=== PATIENT | female | born 1950 | race Caucasian/White ===

== ENCOUNTER → 2024-03-01 07:49 | Outpatient (REF) | payer MEDICARE, BC, SELFPAY ==
[2024-03-01 10:14] LABS: ALT (SGPT) 22 U/L (0-35); AST (SGOT) 34 U/L (14-36); Albumin 4.3 g/dl (3.5-5.0); Alkaline Phosphatase 87 U/L (38-126); Blood Urea Nitrogen 32 mg/dl (7-17); Calcium 9.8 mg/dl (8.4-10.2); Carbon Dioxide 28 mmol/L (22-30); Chloride 103 mmol/L (98-107); Glucose 105 mg/dl (70-99); HDL Cholesterol 67 mg/dl; LDL Cholesterol, Calculated 28 mg/dl; Potassium 4.8 mmol/L (3.5-5.1); Sodium 136 mmol/L (135-145); Total Bilirubin 0.4 mg/dl (0.2-1.3); Total Cholesterol 109 mg/dl (50-199); Total Protein 6.9 g/dl (6.3-8.2); Triglyceride 74 mg/dl (10-149); Very Low Density Lipoprotein 14 mg/dl (0-30); eGFR > 60.00
== END ==
LOC: HWLAB 07:49
PROVIDERS: ATTENDING PHYSICIAN Internal Medicine Cardiovascular Disease; FAMILY PHYSICIAN Family Medicine
DX: E78.00 Pure hypercholesterolemia, unspecified (principal)
CPT/HCPCS: 36415; 80053; 80061

== ENCOUNTER → 2024-03-19 13:52 | Outpatient (REF) | payer MEDICARE, BC, SELFPAY ==
[2024-03-19 17:00] LABS: TSH 1.47 uIU/ml (0.47-4.68)
== END ==
LOC: HWRAD 13:52
PROVIDERS: ATTENDING PHYSICIAN Otolaryngology; FAMILY PHYSICIAN Family Medicine
DX: E04.0 Nontoxic diffuse goiter (principal); I10 Essential (primary) hypertension
CPT/HCPCS: 36415; 76536; 84443

== ENCOUNTER → 2024-05-15 13:32 | Outpatient (REF) | payer MEDICARE, BC, SELFPAY ==
[2024-05-15 15:38] LABS: % Basophils 1.1 % (0-2); % Eosinophils 2.2 % (0-6); % Immature Granulocytes 1.2 % (0-0.5); % Lymphocytes 31.2 % (20.5-51.1); % Monocytes 6.9 % (1.7-9.3); % Neutrophils 57.4 % (42.2-75.2); Absolute Basophils 0.1 10^3/uL (0-0.2); Absolute Eosinophils 0.1 10^3/uL (0-0.7); Absolute Immature Granulocytes 0.1 10^3/uL (0-0.05); Absolute Monocytes 0.5 10^3/uL (0.1-0.6); Absolute Neutrophils 3.7 10^3/uL (1.4-6.5); Hematocrit 40.7 % (37.0-47.0); Hemoglobin 13.9 g/dL (12.0-16.0); Mean Corp Hgb Conc. 34.2 g/dL (33.0-37.0); Mean Corpuscular Hgb 33.3 pg (27.0-31.0); Mean Corpuscular Volume 97.4 fL (81.0-99.0); Mean Platelet Volume 10.3 fL (7.4-10.4); Nucleated Red Blood Cells % 0 %; Platelet Count 204 10^3/uL (130-400); Red Blood Cell Count 4.18 10^6/uL (4.20-5.40); Red Cell Dist. Width 13.5 % (11.5-14.5); White Blood Cell Count 6.5 10^3/uL (4.8-10.8)
[2024-05-15 15:39] LABS: Urine Albumin Negative (Neg - Trace); Urine Bilirubin Negative (Negative); Urine Character Clear (Clear); Urine Color Yellow; Urine Glucose Negative (Negative); Urine Ketone Trace (Negative); Urine Leukocyte 1+ (Negative); Urine Nitrite Negative (Negative); Urine Occult Blood Negative (Negative); Urine Urobilinogen Negative (Neg - 1+)
[2024-05-15 15:46] LABS: ALT (SGPT) 24 U/L (0-35); AST (SGOT) 33 U/L (14-36); Albumin 4.2 g/dl (3.5-5.0); Alkaline Phosphatase 74 U/L (38-126); Blood Urea Nitrogen 17 mg/dl (7-17); Calcium 9.6 mg/dl (8.4-10.2); Carbon Dioxide 27 mmol/L (22-30); Chloride 103 mmol/L (98-107); Creatine Phosphokinase 63 U/L (30-135); Glucose 88 mg/dl (70-99); HDL Cholesterol 60 mg/dl; LDL Cholesterol, Calculated 20 mg/dl; Magnesium 1.9 mg/dl (1.6-2.3); Phosphorus 3.8 mg/dl (2.5-4.5); Potassium 4.5 mmol/L (3.5-5.1); Sodium 138 mmol/L (135-145); Total Bilirubin 0.7 mg/dl (0.2-1.3); Total Cholesterol 90 mg/dl (50-199); Total Protein 6.7 g/dl (6.3-8.2); Triglyceride 51 mg/dl (10-149); Uric Acid 5.2 mg/dl (2.5-6.2); Very Low Density Lipoprotein 10 mg/dl (0-30); eGFR > 60.00
[2024-05-15 15:54] LABS: Iron 74 ug/dl (37-170)
[2024-05-15 15:55] LABS: Percent Saturation 20 % (20-50); Total Iron Binding Capacity 366 ug/dl (265-497)
[2024-05-15 16:03] LABS: Free T4 1.28 ng/dl (0.78-2.19); Vitamin D, 25-OH*** 96.1 ng/mL (30-80)
[2024-05-15 16:16] LABS: TSH 0.93 uIU/ml (0.47-4.68)
[2024-05-15 17:25] LABS: Urine Squamous Cell >30 /LPF (Few)
[2024-05-15 17:27] LABS: Urine Bacteria Few (Negative); Urine Red Blood Cell 0-2 /HPF (0-2)
[2024-05-16 09:39] LABS: Glycohemoglobin (HgbA1c) 5.5 % (4.0-5.6)
== END ==
LOC: HWRAD 13:32
PROVIDERS: ATTENDING PHYSICIAN Family Medicine
DX: Z78.0 Asymptomatic menopausal state (principal); Z12.31 Encounter for screening mammogram for malignant neoplasm of breast; Z00.00 Encounter for general adult medical examination without abnormal findings; E78.5 Hyperlipidemia, unspecified; I10 Essential (primary) hypertension; R79.89 Other specified abnormal findings of blood chemistry; E04.1 Nontoxic single thyroid nodule; E55.9 Vitamin D deficiency, unspecified
CPT/HCPCS: 36415; 71046; 77063; 77067; 77080; 80053; 80061; 81003; 81015; 82306; 82550; 82728; 83036; 83540; 83550; 83735; 84100; 84439; 84443; 84550; 85025

== ENCOUNTER → 2024-05-17 11:56 | Outpatient (REF) | payer MEDICARE, BC, SELFPAY ==
[2024-05-17 19:51] LABS: Urine Albumin Negative (Neg - Trace); Urine Bilirubin Negative (Negative); Urine Character Clear (Clear); Urine Color Yellow; Urine Glucose Negative (Negative); Urine Ketone Negative (Negative); Urine Leukocyte Trace (Negative); Urine Nitrite Negative (Negative); Urine Occult Blood Negative (Negative); Urine Urobilinogen Negative (Neg - 1+)
[2024-05-17 20:19] LABS: Urine Red Blood Cell 0-2 /HPF (0-2); Urine Squamous Cell 0-2 /LPF (Few); Urine White Cell 0-2 /HPF (0-5)
== END ==
LOC: CLAB 11:56
PROVIDERS: ATTENDING PHYSICIAN Family Medicine
DX: R82.71 Bacteriuria (principal)
CPT/HCPCS: 81003; 81015; 87086

== ENCOUNTER → 2024-06-10 16:27 | Outpatient (REF) | payer MEDICARE, BC, SELFPAY | LOC: HWRAD 16:27 | PROVIDERS: ATTENDING PHYSICIAN Family Medicine | DX: Z78.0 Asymptomatic menopausal state (principal) | CPT/HCPCS: 73600; 73620 ==

== ENCOUNTER → 2024-07-15 18:07 | Outpatient (REF) | payer MEDICARE, BC, SELFPAY | LOC: PAVMRI 18:07 | PROVIDERS: ATTENDING PHYSICIAN Student in an Organized Health Care Education/Training Program; FAMILY PHYSICIAN Family Medicine | DX: M25.571 Pain in right ankle and joints of right foot (principal) | CPT/HCPCS: 73721 ==

== ENCOUNTER → 2024-09-06 12:10 | Outpatient (REF) | payer MEDICARE, BC, SELFPAY ==
[2024-09-06 15:38] LABS: HDL Cholesterol 75 mg/dl; LDL Cholesterol, Calculated 26 mg/dl; Total Cholesterol 114 mg/dl (50-199); Triglyceride 67 mg/dl (10-149); Very Low Density Lipoprotein 13 mg/dl (0-30)
== END ==
LOC: HWLAB 12:10
PROVIDERS: ATTENDING PHYSICIAN Family Medicine
DX: E78.5 Hyperlipidemia, unspecified (principal)
CPT/HCPCS: 36415; 80061

== ENCOUNTER → 2025-03-21 12:24 | Outpatient (REF) | payer MEDICARE, BC, SELFPAY | LOC: HWRAD 12:24 | PROVIDERS: ATTENDING PHYSICIAN Otolaryngology; FAMILY PHYSICIAN Family Medicine | DX: E04.0 Nontoxic diffuse goiter (principal) | CPT/HCPCS: 36415; 76536; 84443 ==

== ENCOUNTER → 2025-04-16 10:22 | Outpatient (REF) | payer MEDICARE, BC, SELFPAY ==
[2025-04-16 12:57] LABS: % Basophils 0.9 % (0-2); % Eosinophils 2.5 % (0-6); % Immature Granulocytes 0.4 % (0-0.5); % Lymphocytes 30.8 % (20.5-51.1); % Monocytes 8.8 % (1.7-9.3); % Neutrophils 56.6 % (42.2-75.2); Absolute Basophils 0.1 10^3/uL (0-0.2); Absolute Eosinophils 0.1 10^3/uL (0-0.7); Absolute Lymphocytes 1.8 10^3/uL (1.2-3.4); Absolute Monocytes 0.5 10^3/uL (0.1-0.6); Absolute Neutrophils 3.2 10^3/uL (1.4-6.5); Hematocrit 41.9 % (37.0-47.0); Hemoglobin 13.8 g/dL (12.0-16.0); Mean Corp Hgb Conc. 32.9 g/dL (33.0-37.0); Mean Corpuscular Hgb 32.8 pg (27.0-31.0); Mean Corpuscular Volume 99.5 fL (81.0-99.0); Mean Platelet Volume 9.9 fL (7.4-10.4); Nucleated Red Blood Cells % 0 %; Platelet Count 222 10^3/uL (130-400); Red Blood Cell Count 4.21 10^6/uL (4.20-5.40); Red Cell Dist. Width 13.9 % (11.5-14.5); White Blood Cell Count 5.7 10^3/uL (4.8-10.8)
[2025-04-16 13:05] LABS: ALT (SGPT) 21 U/L (0-35); AST (SGOT) 27 U/L (14-36); Albumin 4.3 g/dl (3.5-5.0); Alkaline Phosphatase 77 U/L (38-126); Blood Urea Nitrogen 19 mg/dl (7-17); Calcium 9.6 mg/dl (8.4-10.2); Carbon Dioxide 29 mmol/L (22-30); Chloride 109 mmol/L (98-107); Glucose 101 mg/dl (70-99); HDL Cholesterol 74 mg/dl; Iron 68 ug/dl (37-170); LDL Cholesterol, Calculated 35 mg/dl; Magnesium 1.8 mg/dl (1.6-2.3); Phosphorus 3.6 mg/dl (2.5-4.5); Potassium 4.1 mmol/L (3.5-5.1); Sodium 142 mmol/L (135-145); Total Bilirubin 0.7 mg/dl (0.2-1.3); Total Cholesterol 118 mg/dl (50-199); Total Protein 6.7 g/dl (6.3-8.2); Triglyceride 49 mg/dl (10-149); Uric Acid 4.2 mg/dl (2.5-6.2); Very Low Density Lipoprotein 9 mg/dl (0-30); eGFR > 60.00
[2025-04-16 13:14] LABS: Percent Saturation 16 % (20-50); Total Iron Binding Capacity 408 ug/dl (265-497)
[2025-04-16 13:20] LABS: Free T4 1.32 ng/dl (0.78-2.19); Vitamin D, 25-OH*** 85.3 ng/mL (30-80)
[2025-04-16 13:27] LABS: Glycohemoglobin (HgbA1c) 5.5 % (4.0-5.6)
[2025-04-16 13:33] LABS: TSH 1.26 uIU/ml (0.47-4.68)
[2025-04-16 13:37] LABS: Ferritin 33.1 ng/ml (11.1-264.0)
== END ==
LOC: HWRAD 10:22
PROVIDERS: ATTENDING PHYSICIAN Family Medicine
DX: R91.1 Solitary pulmonary nodule (principal); E78.5 Hyperlipidemia, unspecified; I10 Essential (primary) hypertension; E04.1 Nontoxic single thyroid nodule; R73.09 Other abnormal glucose; E55.9 Vitamin D deficiency, unspecified; R79.89 Other specified abnormal findings of blood chemistry
CPT/HCPCS: 36415; 71250; 80053; 80061; 82306; 82728; 83036; 83540; 83550; 83735; 84100; 84439; 84443; 84550; 85025

== ENCOUNTER → 2025-05-13 18:03 | Outpatient (REF) | payer MEDICARE, BC, SELFPAY | LOC: RAD 18:03 | PROVIDERS: ATTENDING PHYSICIAN Family Medicine | DX: M79.602 Pain in left arm (principal) | CPT/HCPCS: 72040; 73060 ==

== ENCOUNTER → 2025-05-19 14:34 | Outpatient (REF) | payer MEDICARE, BC, SELFPAY | LOC: HWWDC 14:34 | PROVIDERS: ATTENDING PHYSICIAN Family Medicine | DX: Z12.31 Encounter for screening mammogram for malignant neoplasm of breast (principal) | CPT/HCPCS: 77063; 77067 ==

== ENCOUNTER → 2025-05-28 12:46 | Outpatient (REF) | payer MEDICARE, BC, SELFPAY ==
[2025-05-28 16:08] LABS: Albumin 4.3 g/dl (3.5-5.0); Blood Urea Nitrogen 15 mg/dl (7-17); Calcium 10.1 mg/dl (8.4-10.2); Carbon Dioxide 30 mmol/L (22-30); Chloride 104 mmol/L (98-107); Glucose 96 mg/dl (70-99); Magnesium 1.8 mg/dl (1.6-2.3); Potassium 4.4 mmol/L (3.5-5.1); Sodium 139 mmol/L (135-145); eGFR > 60.00
[2025-05-28 16:20] LABS: Microalbumin, Random Urine 3.8 mg/dl (0.6-1.7)
[2025-05-28 16:34] LABS: Microalb - Urine Creatinine 354.400 mg/dl
== END ==
LOC: HWLAB 12:46
PROVIDERS: ATTENDING PHYSICIAN Specialist; FAMILY PHYSICIAN Family Medicine
DX: I10 Essential (primary) hypertension (principal); N26.9 Renal sclerosis, unspecified; N28.1 Cyst of kidney, acquired; R31.9 Hematuria, unspecified; E87.1 Hypo-osmolality and hyponatremia; E55.9 Vitamin D deficiency, unspecified; R94.31 Abnormal electrocardiogram [ECG] [EKG]
CPT/HCPCS: 36415; 80069; 82043; 82570; 83735

== ENCOUNTER → 2025-06-05 15:02 | Outpatient (REF) | payer MEDICARE, BC, SELFPAY | LOC: PAVMRI 15:02 | PROVIDERS: ATTENDING PHYSICIAN Physical Medicine & Rehabilitation; FAMILY PHYSICIAN Family Medicine | DX: M75.102 Unspecified rotator cuff tear or rupture of left shoulder, not specified as traumatic (principal) | CPT/HCPCS: 73221 ==

== ENCOUNTER → 2025-07-01 18:36 | Outpatient (REF) | payer MEDICARE, BC, SELFPAY | LOC: MRI 3T 18:36 | PROVIDERS: ATTENDING PHYSICIAN Orthopaedic Surgery; FAMILY PHYSICIAN Family Medicine | DX: M25.511 Pain in right shoulder (principal) | CPT/HCPCS: 72141 ==

== ENCOUNTER → 2025-09-11 16:26 | Outpatient (REF) | payer MEDICARE, BC, SELFPAY ==
[2025-09-11 17:52] LABS: Hematocrit 36.6 % (37.0-47.0); Hemoglobin 12.1 g/dL (12.0-16.0); Mean Corp Hgb Conc. 33.1 g/dL (33.0-37.0); Mean Corpuscular Volume 96.6 fL (81.0-99.0); Nucleated Red Blood Cells % 0 %; Platelet Count 360 10^3/uL (130-400); Red Cell Dist. Width 15.3 % (11.5-14.5)
[2025-09-11 17:57] LABS: ALT (SGPT) 16 U/L (0-35); AST (SGOT) 20 U/L (14-36); Albumin 4.3 g/dl (3.5-5.0); Alkaline Phosphatase 82 U/L (38-126); Blood Urea Nitrogen 32 mg/dl (7-17); Calcium 10.2 mg/dl (8.4-10.2); Carbon Dioxide 27 mmol/L (22-30); Chloride 104 mmol/L (98-107); Glucose 87 mg/dl (70-99); Potassium 4.3 mmol/L (3.5-5.1); Sodium 139 mmol/L (135-145); Total Protein 7.2 g/dl (6.3-8.2); eGFR > 60.00
[2025-09-12 09:09] LABS: Glycohemoglobin (HgbA1c) 5.7 % (4.0-5.6)
[2025-09-14 03:29] LABS: ANA, IgG Reflex to HEp-2 None Detected (None Detected)
== END ==
LOC: REG 16:26
PROVIDERS: ATTENDING PHYSICIAN Family Medicine
DX: E61.1 Iron deficiency (principal); M62.838 Other muscle spasm; Z79.899 Other long term (current) drug therapy
CPT/HCPCS: 36415; 80053; 82550; 83021; 83036; 85025; 85652; 86038; 86430

== ENCOUNTER → 2025-09-15 12:50 | Outpatient (REF) | payer MEDICARE, BC, SELFPAY | LOC: EMG 12:50 | PROVIDERS: ATTENDING PHYSICIAN Physical Medicine & Rehabilitation; FAMILY PHYSICIAN Family Medicine | DX: M54.12 Radiculopathy, cervical region (principal); M50.20 Other cervical disc displacement, unspecified cervical region; R20.0 Anesthesia of skin; R20.2 Paresthesia of skin | CPT/HCPCS: 95886; 95911 ==

== ENCOUNTER → 2025-10-29 13:15 | Outpatient (REF) | payer MEDICARE, BC, SELFPAY ==
[2025-10-29 14:38] LABS: Hematocrit 39.2 % (37.0-47.0); Hemoglobin 12.7 g/dL (12.0-16.0); Mean Corp Hgb Conc. 32.4 g/dL (33.0-37.0); Mean Corpuscular Volume 95.4 fL (81.0-99.0); Nucleated Red Blood Cells % 0 %; Platelet Count 355 10^3/uL (130-400); Red Cell Dist. Width 13.7 % (11.5-14.5)
[2025-10-29 15:19] LABS: ALT (SGPT) 24 U/L (0-35); AST (SGOT) 24 U/L (14-36); Albumin 4.2 g/dl (3.5-5.0); Alkaline Phosphatase 60 U/L (38-126); Blood Urea Nitrogen 26 mg/dl (7-17); Calcium 9.9 mg/dl (8.4-10.2); Carbon Dioxide 29 mmol/L (22-30); Chloride 102 mmol/L (98-107); GGTP 33 U/L (12-43); Glucose 87 mg/dl (70-99); Potassium 4.1 mmol/L (3.5-5.1); Sodium 134 mmol/L (135-145); Total Protein 6.9 g/dl (6.3-8.2); eGFR > 60.00
[2025-10-30 09:13] LABS: Glycohemoglobin (HgbA1c) 5.9 % (4.0-5.9)
[2025-11-01 07:28] LABS: ANA, IgG Reflex to HEp-2 None Detected (None Detected)
== END ==
LOC: REG 13:15
PROVIDERS: ATTENDING PHYSICIAN Family Medicine
DX: R70.0 Elevated erythrocyte sedimentation rate (principal); R79.89 Other specified abnormal findings of blood chemistry; R73.09 Other abnormal glucose; E78.5 Hyperlipidemia, unspecified; R52 Pain, unspecified; R10.814 Left lower quadrant abdominal tenderness
CPT/HCPCS: 36415; 80053; 82550; 82977; 83036; 85025; 85652; 86038; 86225; 86235

== ENCOUNTER → 2025-11-03 15:12 | Outpatient (REF) | payer MEDICARE, BC, SELFPAY ==
[2025-11-03 16:02] LABS: HDL Cholesterol 96 mg/dl; LDL Cholesterol, Calculated 111 mg/dl; Very Low Density Lipoprotein 18 mg/dl (0-30)
== END ==
LOC: REG 15:12
PROVIDERS: ATTENDING PHYSICIAN Family Medicine
DX: E78.5 Hyperlipidemia, unspecified (principal)
CPT/HCPCS: 36415; 80061

== ENCOUNTER → 2025-11-10 16:44 | Outpatient (REF) | payer MEDICARE, BC, SELFPAY ==
[2025-11-10 17:23] LABS: Hematocrit 37.2 % (37.0-47.0); Hemoglobin 12.1 g/dL (12.0-16.0); Mean Corp Hgb Conc. 32.5 g/dL (33.0-37.0); Mean Corpuscular Volume 94.7 fL (81.0-99.0); Nucleated Red Blood Cells % 0 %; Platelet Count 291 10^3/uL (130-400); Red Cell Dist. Width 14.0 % (11.5-14.5)
[2025-11-10 17:40] LABS: ALT (SGPT) 28 U/L (0-35); AST (SGOT) 29 U/L (14-36); Albumin 4.2 g/dl (3.5-5.0); Alkaline Phosphatase 73 U/L (38-126); Blood Urea Nitrogen 21 mg/dl (7-17); Calcium 9.4 mg/dl (8.4-10.2); Carbon Dioxide 27 mmol/L (22-30); Chloride 104 mmol/L (98-107); Glucose 101 mg/dl (70-99); Potassium 4.1 mmol/L (3.5-5.1); Sodium 137 mmol/L (135-145); Total Protein 6.7 g/dl (6.3-8.2); eGFR > 60.00
[2025-11-10 17:42] LABS: C-Reactive Protein < 5.00 mg/L (0.0-10.00)
== END ==
LOC: REG 16:44
PROVIDERS: ATTENDING PHYSICIAN Internal Medicine Rheumatology; FAMILY PHYSICIAN Family Medicine
DX: M06.4 Inflammatory polyarthropathy (principal); Z79.899 Other long term (current) drug therapy
CPT/HCPCS: 36415; 80053; 85025; 85652; 86140